=== PATIENT | female | born 1990 | race Caucasian/White ===

== ENCOUNTER 2023-12-22 15:21 | Outpatient (CLI) | payer OTHER | END 2023-12-22 15:22 | disposition home or self-care (01) | LOC: CSHULT 15:21 | PROVIDERS: ATTEND Advanced Practice Midwife | DX: N93.9 Abnormal uterine and vaginal bleeding, unspecified (principal); N83.201 Unspecified ovarian cyst, right side; N88.9 Noninflammatory disorder of cervix uteri, unspecified | CPT/HCPCS: 76856 ==